=== PATIENT | female | born 1965 | race Caucasian/White ===

== ENCOUNTER 2017-07-08 12:32 | Emergency (ER) | payer BC, OTHER ==
[~2017-07-08] VITALS: Ht 167.6 cm; Wt 70.0 kg
[~2017-07-08 12:32] MED LIST: ACET325T11 PO; CLON.1 PO; FOLITAB6 OR; KCL20; SERT100 PO; TAB-TAB PO; VALI10TA OR
[2017-07-08 12:56] VITALS: BP 112/61; PULSE 104; RESP 18; TEMP 98.4; O2SAT 99
[2017-07-08 13:40] LABS: AUTOMATED NEUTROPHIL # 6.1 TH/MM3 (1.8-7.7); BASOPHIL # 0.1 TH/MM3 (0-0.2); BASOPHIL % 0.6 % (0.0-2.0); EOSINOPHIL # 0.1 TH/MM3 (0-0.4); EOSINOPHIL % 0.9 % (0.0-4.0); HEMO FLAGS DIFF FINAL; LYMPH % 19.3 % (9.0-44.0); LYMPHOCYTE # 1.7 TH/MM3 (1.0-4.8); MEAN CELL VOLUME 104.8 FL (80.0-100.0); MEAN CORPUSCULAR HEMOGLOBIN 36.1 PG (27.0-34.0); MEAN CORPUSCULAR HGB CONC 34.4 % (32.0-36.0); MONO % 9.1 % (0.0-8.0); NEUT % 70.1 % (16.0-70.0); PLATELET COUNT 214 TH/MM3 (150-450); RED CELL DISTRIBUTION WIDTH 13.7 % (11.6-17.2); WHITE BLOOD COUNT 8.6 TH/MM3 (4.0-11.0)
[2017-07-08 14:04] LABS: BLOOD, URINE SMALL (NEG); GLUCOSE,URINE NEG (NEG); KETONE, URINE NEG (NEG); NITRITE,URINE NEG (NEG); URINE COLOR LIGHT-YELLOW (YELLW/STRAW)
[2017-07-08 14:17] LABS: ALKALINE PHOSPHATASE 122 U/L (45-117); ALT (GPT) 48 U/L (10-53); ANION GAP 11 MEQ/L (5-15); AST (GOT) 33 U/L (15-37); BICARBONATE 22.2 MEQ/L (21.0-32.0); BLOOD UREA NITROGEN 16 MG/DL (7-18); CHLORIDE 107 MEQ/L (98-107); GLOMERULAR FILTRATION RATE 99 ML/MIN (>89); SODIUM (NA) 140 MEQ/L (136-145); TOTAL BILIRUBIN ADULT 0.2 MG/DL (0.2-1.0)
[2017-07-08 14:18] LABS: ALCOHOL 163 MG/DL (0-5)
[2017-07-08 14:32] LABS: BACTERIA, URINE OCC /hpf; COMMENT (UR) CULT NOT INDICATED; CULTURE IF INDICATED CULT NOT INDICATED; SQUAMOUS EPITHELIAL CELL URINE > 8 /hpf (0-5); WBC, URINE 0-2 /hpf (0-5)
--- NOTE | 2017-07-08 15:55 | PD ---
HPI Chief Complaint: Psychiatric Symptoms Time Seen by Provider: 14:45 Travel History International Travel<30 days: No Contact w/Intl Traveler<30days: No Traveled to known affect area: No History of Present Illness HPI 51-year-old female presents to the emergency room for evaluation of suicidal ideation and depression. Patient states she had a few glasses of wine today which is unusual for her. She called 911 hoping to speak to a patient advocate or counselor over the phone about her depression and suicidal ideation but instead security police officer showed up at her house and Oh acted her. She did tell them that she was suicidal for the past 3 months. Patient states she is depressed but has no plan to commit suicide. She denies homicidal ideation. Denies hallucinations or delusions. Reports occasional alcohol use. Denies illicit drug use. Denies any chronic medical conditions other than psychiatric. Denies any medical complaints. PFSH Past Medical History Bipolar Disorder: Yes Anxiety: Yes Depression: Yes Diminished Hearing: No Ulcer: Yes Menopausal: No : 2 Para: 2 Social History Alcohol Use: No (HX OF) Tobacco Use: No (HX OF 1/2 PPD (quit 04/02)) Substance Use: No Allergies-Medications (Allergen,Severity, Reaction): Coded Allergies: penicillin G (Unverified Allergy, Severe, 04/05/17) Reported Meds & Prescriptions Reported Meds & Active Scripts Active Reported Kcl 20 Meq Tab (Potassium Chloride) 20 Meq Tabcr 20 Meq .XX Folic Acid (Folic Cels-Sgvawuarla-Jjxlgxld) Tab 1 OR Multivitamin (Multivitamins) 1 Tab Tab 1 Tab PO DAILY Tylenol 325 Mg Tab (Acetaminophen) 325 Mg Tab 650 Mg PO TID Catapres (Clonidine HCl) 0.1 Mg Tab 0.1 Mg PO BID Valium (Diazepam) 10 Mg Tab 10 Mg OR TID Zoloft (Sertraline HCl) 100 Mg Tab 200 Mg PO DAILY Review of Systems Except as stated in HPI: all other systems reviewed are Neg Physical Exam Narrative GENERAL: Well-nourished, well-developed female in no acute distress. Afebrile. Ambulatory. SKIN: Focused skin assessment warm/dry. HEAD: Normocephalic. EYES: No scleral icterus. No injection or drainage. NECK: Supple, trachea midline. No JVD or lymphadenopathy. CARDIOVASCULAR: Regular rate and rhythm without murmurs, gallops, or rubs. RESPIRATORY: Breath sounds equal bilaterally. No accessory muscle use. PSYCHIATRIC: No delusional thought processes. No hallucinations. Anxious mood. Pressured speech. Data Data Last Documented VS Vital Signs Date Time Temp Pulse Resp B/P (MAP) Pulse Ox O2 Delivery O2 Flow Rate FiO2 07/08/17 12:56 98.4 104 18 112/61 (78) 99 Orders Orders Complete Blood Count With Diff (07/08/17 13:08) Comprehensive Metabolic Panel (07/08/17 13:08) Urinalysis - C+S If Indicated (07/08/17 13:08) Psych Screen (07/08/17 13:08) Drug Screen, Random Urine (07/08/17 13:08) Alcohol (Ethanol) (07/08/17 13:08) Labs Laboratory Tests Test 07/08/17 11:31 White Blood Count 8.6 TH/MM3 Red Blood Count 4.30 MIL/MM3 Hemoglobin 15.5 GM/DL Hematocrit 45.0 % Mean Corpuscular Volume 104.8 FL Mean Corpuscular Hemoglobin 36.1 PG Mean Corpuscular Hemoglobin Concent 34.4 % Red Cell Distribution Width 13.7 % Platelet Count 214 TH/MM3 Mean Platelet Volume 9.2 FL Neutrophils (%) (Auto) 70.1 % Lymphocytes (%) (Auto) 19.3 % Monocytes (%) (Auto) 9.1 % Eosinophils (%) (Auto) 0.9 % Basophils (%) (Auto) 0.6 % Neutrophils # (Auto) 6.1 TH/MM3 Lymphocytes # (Auto) 1.7 TH/MM3 Monocytes # (Auto) 0.8 TH/MM3 Eosinophils # (Auto) 0.1 TH/MM3 Basophils # (Auto) 0.1 TH/MM3 CBC Comment DIFF FINAL Differential Comment Urine Color LIGHT-YELLOW Urine Turbidity CLEAR Urine pH 5.0 Urine Specific [place] 1.006 Urine Protein NEG mg/dL Urine Glucose (UA) NEG mg/dL Urine Ketones NEG mg/dL Urine Occult Blood SMALL Urine Nitrite NEG Urine Bilirubin NEG Urine Urobilinogen LESS THAN 2.0 MG/DL Urine Leukocyte Esterase SMALL Urine RBC 1-3 /hpf Urine WBC 0-2 /hpf Urine Squamous Epithelial Cells > 8 /hpf Urine Bacteria OCC /hpf Microscopic Urinalysis Comment CULT NOT INDICATED Blood Urea Nitrogen 16 MG/DL Creatinine 0.63 MG/DL Random Glucose 107 MG/DL Total Protein 7.9 GM/DL Albumin 3.9 GM/DL Calcium Level 9.2 MG/DL Alkaline Phosphatase 122 U/L Aspartate Amino Transf (AST/SGOT) 33 U/L Alanine Aminotransferase (ALT/SGPT) 48 U/L Total Bilirubin 0.2 MG/DL Sodium Level 140 MEQ/L Potassium Level 4.0 MEQ/L Chloride Level 107 MEQ/L Carbon Dioxide Level 22.2 MEQ/L Anion Gap 11 MEQ/L Estimat Glomerular Filtration Rate 99 ML/MIN Urine Opiates Screen NEG Urine Barbiturates Screen NEG Urine Amphetamines Screen NEG Urine Benzodiazepines Screen POS Urine Cocaine Screen NEG Urine Cannabinoids Screen POS Ethyl Alcohol Level 163 MG/DL MDM Medical Decision Making Medical Screen Exam Complete: Yes Emergency Medical Condition: Yes Medical Record Reviewed: Yes Differential Diagnosis Suicidal ideation, depression, anxiety, bipolar disorder Narrative Course 51-year-old female with history of depression, anxiety presents to the emergency room for evaluation of suicidal ideation. States she called 911 hoping to speak to someone over the phone and the diesel powerplant supervisor came to her house and Oh acted her. She denies suicidal ideation at this time. She denies any medical complaints at this time. Vital signs stable. She is mildly tachycardic but appears extremely anxious on exam. CMP was CBC unremarkable. UA shows no evidence of infection. Toxicology shows some alcohol most of them as well as benzodiazepines and cannabinoids. Physical exam is unremarkable. Patient is medically cleared for psychiatric evaluation at this time. Condition: Stable Olivia Burch Jul 08, 2017 15:55
[2017-07-08 17:39] VITALS: BP 110/60; PULSE 112; RESP 20; TEMP 92.1; O2SAT 98
--- NOTE | 2017-07-08 21:17 | PD ---
History of Present Illness Chief Complaint: Psychiatric Symptoms Time Seen by Provider: 20:30 Travel History International Travel<30 Days: No Contact w/Intl Traveler<30days: No Known affected area: No Legal Status Legal Status: Oh Act Oh Act Signed By: Efe Chinchilla Oh Act Comment: 07/08/2017 1149 AM DEP. Darrell ROPER #[id number] [id number] History of Present Illness: History of Present Illness HPI 51-year-old female with history of bipolar disorder who presents to the emergency room under a Oh act initiated by lawn service manager. The Oh act alleges that the patient call 911 and reported feeling depressed as well as suicidal. Patient reports that earlier in the morning she wanted to talk to someone so she called 911. She reported she had been feeling depressed at the time and that her was at work and could not answer the phone so she called the police. She denies that she said she wanted to hurt herself but that in fact she said" I don't want to live like this." The patient did not make an attempt at harming herself. She also admits that she had a glass of wine earlier during the morning. Blood alcohol level on arrival to the ED was 163. Positive toxicology for cannabinoids. Electronic medical record is reviewed. She has had several visits to the ED with the last visit being in 2009 for substance-induced mood disorder. At that visit she had been drinking alcohol as well. The patient was monitored and secure environment and she presented no behavioral dysregulation and no suicidality. She is calm, engaging and cooperative. Speech is clear, logical. There is no evidence of any psychosis, no delusions, no hallucinations and no paranoia. There is no pankaj. Mood is anxious. Denies suicidal or homicidal ideation intent or plan. Reports medication compliance. She has a follow-up appointment with this therapist on Tuesday and she plans on going to that appointment. She is requesting to be discharged home. Telephone call to her , Haja at [phone]. He has no concerns for her safety if she were to be discharged home. He informs me that she said she doesn't want to live like this anymore and not that she wanted to kill herself. He also reports that she had a medication adjustment approximately 3 weeks ago and this might be contributing to her call today. PFSH Past Medical History Bipolar Disorder: Yes Anxiety: Yes Depression: Yes Diminished Hearing: No Ulcer: Yes Menopausal: No : 2 Para: 2 Psychiatric History Psychiatric History Hx Psychiatric Treatment: Patient with hx of bipolar disorder. States she was an inpatient at age 31 in [place]. Her current psychiatrist is Dr. Yohana Guardado and her therapist is Brittany. Has an appointment on Tuesday. Denies any previous history of suicide attempt. History of Inpatient Treatment: Yes Guns or firearms in home: No Social History female. Lives with her . Unemployed. Hx Alcohol Use: Yes (HX OF) Hx Tobacco Use: No (HX OF 1/2 PPD (quit 04/02)) Hx Substance Use: No Substance Use Type: Alcohol (history of all call use on a consistent basis up until 2009.), Nicotine/Cigarettes Other Substances Used: wine occ., 1/2 ppd Hx of Substance Use Treatment: No Family Psychiatric History Negative Allergies-Medications (Allergen,Severity, Reaction): Coded Allergies: penicillin G (Unverified Allergy, Severe, 04/05/17) Reported Meds & Prescriptions Reported Meds & Active Scripts Active Reported Kcl 20 Meq Tab (Potassium Chloride) 20 Meq Tabcr 20 Meq .XX Folic Acid (Folic Brsa-Llvqzlkgot-Xyxfbxqr) Tab 1 OR Multivitamin (Multivitamins) 1 Tab Tab 1 Tab PO DAILY Tylenol 325 Mg Tab (Acetaminophen) 325 Mg Tab 650 Mg PO TID Catapres (Clonidine HCl) 0.1 Mg Tab 0.1 Mg PO BID Valium (Diazepam) 10 Mg Tab 10 Mg OR TID Zoloft (Sertraline HCl) 100 Mg Tab 200 Mg PO DAILY Review of Systems Except as stated in HPI: all other systems reviewed are Neg Mental Status Examination Appearance: Appropriate Consciousness: Alert Orientation: x4 Motor Activity: Normal gait Speech: Unremarkable Language: Adequate Fund of Knowledge: Adequate Attention and Concentration: Adequate Memory: Unremarkable Mood: Anxious Affect: Appropriate Thought Process & Associations: Intact Thought Content: Appropriate Hallucination Type: None Delusion Type: None Suicidal Ideation: No Suicidal Plan: No Suicidal Intention: No Homicidal Ideation: No Homicidal Plan: No Homicidal Intention: No Insight: Fair Judgment: Impulsive MDM Medical Decision Making Medical Record Reviewed: Yes Assessment/Plan History of Present Illness HPI 51-year-old female with history of bipolar disorder who presents to the emergency room under a Oh act initiated by lawn service manager. The Oh act alleges that the patient call 911 and reported feeling depressed as well as suicidal. Patient reports that earlier in the morning she wanted to talk to someone so she called 911. She reported she had been feeling depressed at the time and that her was at work and could not answer the phone so she called the police. She denies that she said she wanted to hurt herself but that in fact she said" I don't want to live like this." Patient is not psychotic and not manic. She is denying suicidal or homicidal ideation, intent or plan. She admits to having had some wine on the morning that she called the police. She is requesting to be discharge. At this time she does not meet Oh act criteria. She is cognitively intact. Contracts for safety. Her has agreed to pick her up at the emergency department. She will follow- up with her outpatient psychiatrist as well as set her outpatient therapist. Psychiatrically clear for discharge. Orders Orders Complete Blood Count With Diff (07/08/17 13:08) Comprehensive Metabolic Panel (07/08/17 13:08) Urinalysis - C+S If Indicated (07/08/17 13:08) Psych Screen (07/08/17 13:08) Drug Screen, Random Urine (07/08/17 13:08) Alcohol (Ethanol) (07/08/17 13:08) Diet Regular Basic (07/08/17 Dinner) Results Vital Signs Date Time Temp Pulse Resp B/P (MAP) Pulse Ox O2 Delivery O2 Flow Rate FiO2 07/08/17 17:39 92.1 112 20 110/60 (77) 98 Room Air 07/08/17 12:56 98.4 104 18 112/61 (78) 99 Laboratory Tests Test 07/08/17 11:31 White Blood Count 8.6 Red Blood Count 4.30 Hemoglobin 15.5 Hematocrit 45.0 Mean Corpuscular Volume 104.8 Mean Corpuscular Hemoglobin 36.1 Mean Corpuscular Hemoglobin Concent 34.4 Red Cell Distribution Width 13.7 Platelet Count 214 Mean Platelet Volume 9.2 Neutrophils (%) (Auto) 70.1 Lymphocytes (%) (Auto) 19.3 Monocytes (%) (Auto) 9.1 Eosinophils (%) (Auto) 0.9 Basophils (%) (Auto) 0.6 Neutrophils # (Auto) 6.1 Lymphocytes # (Auto) 1.7 Monocytes # (Auto) 0.8 Eosinophils # (Auto) 0.1 Basophils # (Auto) 0.1 CBC Comment DIFF FINAL Differential Comment Urine Color LIGHT-YELLOW Urine Turbidity CLEAR Urine pH 5.0 Urine Specific Peck 1.006 Urine Protein NEG Urine Glucose (UA) NEG Urine Ketones NEG Urine Occult Blood SMALL Urine Nitrite NEG Urine Bilirubin NEG Urine Urobilinogen LESS THAN 2.0 Urine Leukocyte Esterase SMALL Urine RBC 1-3 Urine WBC 0-2 Urine Squamous Epithelial Cells > 8 Urine Bacteria OCC Microscopic Urinalysis Comment CULT NOT INDICATED Blood Urea Nitrogen 16 Creatinine 0.63 Random Glucose 107 Total Protein 7.9 Albumin 3.9 Calcium Level 9.2 Alkaline Phosphatase 122 Aspartate Amino Transf (AST/SGOT) 33 Alanine Aminotransferase (ALT/SGPT) 48 Total Bilirubin 0.2 Sodium Level 140 Potassium Level 4.0 Chloride Level 107 Carbon Dioxide Level 22.2 Anion Gap 11 Estimat Glomerular Filtration Rate 99 Urine Opiates Screen NEG Urine Barbiturates Screen NEG Urine Amphetamines Screen NEG Urine Benzodiazepines Screen POS Urine Cocaine Screen NEG Urine Cannabinoids Screen POS Ethyl Alcohol Level 163 Diagnosis Primary Impression: Bipolar disorder Additional Impression: Alcohol-induced mood disorder Psychiatrically Cleared: Yes Med/ Other Pt Specific Info: No Change to Meds Disposition: 01 DISCHARGE HOME Condition: Stable Problem Qualifiers Primary Impression: Bipolar disorder Qualified Codes: F31.31 - Bipolar disorder, current episode depressed, mild MarquisShelby gonzalez [facility] Jul 08, 2017 21:17
--- NOTE | 2017-07-08 21:40 | PD ---
Physical Exam Date Seen by Provider: Jul 08, 2017 Time Seen by Provider: 21:38 Data Data Last Documented VS Vital Signs Date Time Temp Pulse Resp B/P (MAP) Pulse Ox O2 Delivery O2 Flow Rate FiO2 07/08/17 17:39 92.1 112 20 110/60 (77) 98 Room Air Orders Orders Complete Blood Count With Diff (07/08/17 13:08) Comprehensive Metabolic Panel (07/08/17 13:08) Urinalysis - C+S If Indicated (07/08/17 13:08) Psych Screen (07/08/17 13:08) Drug Screen, Random Urine (07/08/17 13:08) Alcohol (Ethanol) (07/08/17 13:08) Diet Regular Basic (07/08/17 Dinner) Ed Discharge Order (07/08/17 21:37) Labs Laboratory Tests Test 07/08/17 11:31 White Blood Count 8.6 TH/MM3 Red Blood Count 4.30 MIL/MM3 Hemoglobin 15.5 GM/DL Hematocrit 45.0 % Mean Corpuscular Volume 104.8 FL Mean Corpuscular Hemoglobin 36.1 PG Mean Corpuscular Hemoglobin Concent 34.4 % Red Cell Distribution Width 13.7 % Platelet Count 214 TH/MM3 Mean Platelet Volume 9.2 FL Neutrophils (%) (Auto) 70.1 % Lymphocytes (%) (Auto) 19.3 % Monocytes (%) (Auto) 9.1 % Eosinophils (%) (Auto) 0.9 % Basophils (%) (Auto) 0.6 % Neutrophils # (Auto) 6.1 TH/MM3 Lymphocytes # (Auto) 1.7 TH/MM3 Monocytes # (Auto) 0.8 TH/MM3 Eosinophils # (Auto) 0.1 TH/MM3 Basophils # (Auto) 0.1 TH/MM3 CBC Comment DIFF FINAL Differential Comment Urine Color LIGHT-YELLOW Urine Turbidity CLEAR Urine pH 5.0 Urine Specific Man 1.006 Urine Protein NEG mg/dL Urine Glucose (UA) NEG mg/dL Urine Ketones NEG mg/dL Urine Occult Blood SMALL Urine Nitrite NEG Urine Bilirubin NEG Urine Urobilinogen LESS THAN 2.0 MG/DL Urine Leukocyte Esterase SMALL Urine RBC 1-3 /hpf Urine WBC 0-2 /hpf Urine Squamous Epithelial Cells > 8 /hpf Urine Bacteria OCC /hpf Microscopic Urinalysis Comment CULT NOT INDICATED Blood Urea Nitrogen 16 MG/DL Creatinine 0.63 MG/DL Random Glucose 107 MG/DL Total Protein 7.9 GM/DL Albumin 3.9 GM/DL Calcium Level 9.2 MG/DL Alkaline Phosphatase 122 U/L Aspartate Amino Transf (AST/SGOT) 33 U/L Alanine Aminotransferase (ALT/SGPT) 48 U/L Total Bilirubin 0.2 MG/DL Sodium Level 140 MEQ/L Potassium Level 4.0 MEQ/L Chloride Level 107 MEQ/L Carbon Dioxide Level 22.2 MEQ/L Anion Gap 11 MEQ/L Estimat Glomerular Filtration Rate 99 ML/MIN Urine Opiates Screen NEG Urine Barbiturates Screen NEG Urine Amphetamines Screen NEG Urine Benzodiazepines Screen POS Urine Cocaine Screen NEG Urine Cannabinoids Screen POS Ethyl Alcohol Level 163 MG/DL [facility] Medical Record Reviewed: Yes Supervised Visit with BRIANNA: No Interpretation(s) Laboratory Tests Test 07/08/17 11:31 White Blood Count 8.6 TH/MM3 Red Blood Count 4.30 MIL/MM3 Hemoglobin 15.5 GM/DL Hematocrit 45.0 % Mean Corpuscular Volume 104.8 FL Mean Corpuscular Hemoglobin 36.1 PG Mean Corpuscular Hemoglobin Concent 34.4 % Red Cell Distribution Width 13.7 % Platelet Count 214 TH/MM3 Mean Platelet Volume 9.2 FL Neutrophils (%) (Auto) 70.1 % Lymphocytes (%) (Auto) 19.3 % Monocytes (%) (Auto) 9.1 % Eosinophils (%) (Auto) 0.9 % Basophils (%) (Auto) 0.6 % Neutrophils # (Auto) 6.1 TH/MM3 Lymphocytes # (Auto) 1.7 TH/MM3 Monocytes # (Auto) 0.8 TH/MM3 Eosinophils # (Auto) 0.1 TH/MM3 Basophils # (Auto) 0.1 TH/MM3 CBC Comment DIFF FINAL Differential Comment Urine Color LIGHT-YELLOW Urine Turbidity CLEAR Urine pH 5.0 Urine Specific Man 1.006 Urine Protein NEG mg/dL Urine Glucose (UA) NEG mg/dL Urine Ketones NEG mg/dL Urine Occult Blood SMALL Urine Nitrite NEG Urine Bilirubin NEG Urine Urobilinogen LESS THAN 2.0 MG/DL Urine Leukocyte Esterase SMALL Urine RBC 1-3 /hpf Urine WBC 0-2 /hpf Urine Squamous Epithelial Cells > 8 /hpf Urine Bacteria OCC /hpf Microscopic Urinalysis Comment CULT NOT INDICATED Blood Urea Nitrogen 16 MG/DL Creatinine 0.63 MG/DL Random Glucose 107 MG/DL Total Protein 7.9 GM/DL Albumin 3.9 GM/DL Calcium Level 9.2 MG/DL Alkaline Phosphatase 122 U/L Aspartate Amino Transf (AST/SGOT) 33 U/L Alanine Aminotransferase (ALT/SGPT) 48 U/L Total Bilirubin 0.2 MG/DL Sodium Level 140 MEQ/L Potassium Level 4.0 MEQ/L Chloride Level 107 MEQ/L Carbon Dioxide Level 22.2 MEQ/L Anion Gap 11 MEQ/L Estimat Glomerular Filtration Rate 99 ML/MIN Urine Opiates Screen NEG Urine Barbiturates Screen NEG Urine Amphetamines Screen NEG Urine Benzodiazepines Screen POS Urine Cocaine Screen NEG Urine Cannabinoids Screen POS Ethyl Alcohol Level 163 MG/DL Differential Diagnosis . Narrative Course The patient was evaluated by the psychiatric nurse practitioner under her Oh act. The Oh act has been lifted. They are not a threat to himself or others. The patient is given treatment information and discharged in stable condition. Diagnosis Primary Impression: Medical clearance for psychiatric admission Patient Instructions: General Instructions Additional Instruction: Rest. Follow-up with the recommendations of the psych screener Disposition: 01 DISCHARGE HOME Condition: Stable Jose Schulz Jul 08, 2017 21:40
== END 2017-07-08 21:57 | disposition home or self-care (01) ==
LOC: NEPJ 12:32
DX: F31.31 Bipolar disorder, current episode depressed, mild (principal); F10.94 Alcohol use, unspecified with alcohol-induced mood disorder; Y90.6 Blood alcohol level of 120-199 mg/100 ml; Z79.899 Other long term (current) drug therapy
CPT/HCPCS: 80053; 80307; 81001; 85025; 99283

== ENCOUNTER 2017-09-30 10:39 | Emergency (ER) | payer BC ==
[~2017-09-30] VITALS: Ht 167.6 cm; Wt 68.0 kg
[2017-09-30 10:41] VITALS: BP 157/96; PULSE 120; RESP 20; TEMP 97.3; O2SAT 98
[2017-09-30 12:12] LABS: AUTOMATED NEUTROPHIL # 5.6 TH/MM3 (1.8-7.7); BASOPHIL # 0.1 TH/MM3 (0-0.2); BASOPHIL % 0.6 % (0.0-2.0); EOSINOPHIL % 0.4 % (0.0-4.0); HEMATOCRIT 45.8 % (35.0-46.0); HEMOGLOBIN 15.7 GM/DL (11.6-15.3); LYMPHOCYTE # 2.9 TH/MM3 (1.0-4.8); MEAN CELL VOLUME 102.5 FL (80.0-100.0); MEAN CORPUSCULAR HEMOGLOBIN 35.2 PG (27.0-34.0); MEAN CORPUSCULAR HGB CONC 34.3 % (32.0-36.0); MONO % 5.8 % (0.0-8.0); MONOCYTE # 0.5 TH/MM3 (0-0.9); NEUT % 61.2 % (16.0-70.0); PLATELET COUNT 276 TH/MM3 (150-450); RED BLOOD COUNT 4.47 MIL/MM3 (4.00-5.30); RED CELL DISTRIBUTION WIDTH 12.4 % (11.6-17.2); WHITE BLOOD COUNT 9.2 TH/MM3 (4.0-11.0)
[2017-09-30 12:26] LABS: ALBUMIN 3.8 GM/DL (3.4-5.0); AST (GOT) 102 U/L (15-37); BLOOD UREA NITROGEN 11 MG/DL (7-18); CALCIUM 9.4 MG/DL (8.5-10.1); CHLORIDE 106 MEQ/L (98-107); CREATININE 0.61 MG/DL (0.50-1.00); GLOMERULAR FILTRATION RATE 103 ML/MIN (>89); GLUCOSE,RANDOM 107 MG/DL (74-106); SODIUM (NA) 140 MEQ/L (136-145)
[2017-09-30 12:27] LABS: ALT (GPT) 148 U/L (10-53)
[2017-09-30 12:35] LABS: ALKALINE PHOSPHATASE 121 U/L (45-117); TOTAL BILIRUBIN ADULT 0.2 MG/DL (0.2-1.0); TOTAL PROTEIN 7.9 GM/DL (6.4-8.2)
--- NOTE | 2017-09-30 13:39 | PD ---
HPI Chief Complaint: Psychiatric Symptoms Time Seen by Provider: 11:12 Travel History International Travel<30 days: No Contact w/Intl Traveler<30days: No Traveled to known affect area: No History of Present Illness HPI This is a 51-year-old female who per her family has a history of delusional disorder with depression who presents to the emergency department with increasing delusions and hallucinations. She says that she hears the devil talking to her and she has been increasingly depressed and delusional. Her reports that she has been locking herself in the house and has not been willing to get out. She was discharged from a psychiatrist recently because she was not going to her appointments but it was because she did not want to leave the house. She has been off of her psychiatric medication for several weeks except for her Pristiq. She does acknowledge drinking alcohol today. Her says he gave her wine so she would be calm enough to leave the house and come here. PFSH Past Medical History Bipolar Disorder: Yes Anxiety: Yes Depression: Yes Diminished Hearing: No Ulcer: Yes ?: Unknown Menopausal: No : 2 Para: 2 Social History Alcohol Use: Yes (HX OF) Tobacco Use: Yes Substance Use: No Allergies-Medications (Allergen,Severity, Reaction): Coded Allergies: penicillin G (Unverified Allergy, Severe, 04/05/17) Reported Meds & Prescriptions Reported Meds & Active Scripts Active Reported Kcl 20 Meq Tab (Potassium Chloride) 20 Meq Tabcr 20 Meq .XX Folic Acid (Folic Alsg-Gkmrpavgmn-Kvzwcybp) Tab 1 OR Multivitamin (Multivitamins) 1 Tab Tab 1 Tab PO DAILY Tylenol 325 Mg Tab (Acetaminophen) 325 Mg Tab 650 Mg PO TID Catapres (Clonidine HCl) 0.1 Mg Tab 0.1 Mg PO BID Valium (Diazepam) 10 Mg Tab 10 Mg OR TID Zoloft (Sertraline HCl) 100 Mg Tab 200 Mg PO DAILY Review of Systems Except as stated in HPI: all other systems reviewed are Neg Physical Exam Narrative GENERAL:Well appearing, no acute distress SKIN: Focused skin assessment warm and dry. HEAD: Atraumatic. Normocephalic. EYES: Pupils equal and round. No injection or drainage. ENT: Moist mucous membranes NECK: Trachea midline. CARDIOVASCULAR: Regular rate and rhythm. No murmur appreciated. RESPIRATORY: Clear to auscultation. Breath sounds equal bilaterally. GASTROINTESTINAL: Abdomen soft, non-tender, nondistended. MUSCULOSKELETAL: No obvious deformities. NEUROLOGICAL: Awake and alert. No obvious cranial nerve deficits. Moving all extremities. PSYCHIATRIC: tearful, reporting auditory hallucinations Data Data Last Documented VS Vital Signs Date Time Temp Pulse Resp B/P (MAP) Pulse Ox O2 Delivery O2 Flow Rate FiO2 09/30/17 10:41 97.3 120 20 157/96 (116) 98 Orders Orders Complete Blood Count With Diff (09/30/17 11:14) Comprehensive Metabolic Panel (09/30/17 11:14) Thyroid Stimulating Hormone (09/30/17 11:14) Psych Screen (09/30/17 11:14) Drug Screen, Random Urine (09/30/17 11:14) Alcohol (Ethanol) (09/30/17 11:14) Labs Laboratory Tests Test 09/30/17 11:55 09/30/17 12:00 White Blood Count 9.2 TH/MM3 Red Blood Count 4.47 MIL/MM3 Hemoglobin 15.7 GM/DL Hematocrit 45.8 % Mean Corpuscular Volume 102.5 FL Mean Corpuscular Hemoglobin 35.2 PG Mean Corpuscular Hemoglobin Concent 34.3 % Red Cell Distribution Width 12.4 % Platelet Count 276 TH/MM3 Mean Platelet Volume 9.0 FL Neutrophils (%) (Auto) 61.2 % Lymphocytes (%) (Auto) 32.0 % Monocytes (%) (Auto) 5.8 % Eosinophils (%) (Auto) 0.4 % Basophils (%) (Auto) 0.6 % Neutrophils # (Auto) 5.6 TH/MM3 Lymphocytes # (Auto) 2.9 TH/MM3 Monocytes # (Auto) 0.5 TH/MM3 Eosinophils # (Auto) 0.0 TH/MM3 Basophils # (Auto) 0.1 TH/MM3 CBC Comment DIFF FINAL Differential Comment Blood Urea Nitrogen 11 MG/DL Creatinine 0.61 MG/DL Random Glucose 107 MG/DL Total Protein 7.9 GM/DL Albumin 3.8 GM/DL Calcium Level 9.4 MG/DL Alkaline Phosphatase 121 U/L Aspartate Amino Transf (AST/SGOT) 102 U/L Alanine Aminotransferase (ALT/SGPT) 148 U/L Total Bilirubin 0.2 MG/DL Sodium Level 140 MEQ/L Potassium Level 4.6 MEQ/L Chloride Level 106 MEQ/L Carbon Dioxide Level 20.0 MEQ/L Anion Gap 14 MEQ/L Estimat Glomerular Filtration Rate 103 ML/MIN Thyroid Stimulating Hormone 3rd Gen 0.458 uIU/ML Ethyl Alcohol Level 169 MG/DL Urine Opiates Screen NEG Urine Barbiturates Screen NEG Urine Amphetamines Screen NEG Urine Benzodiazepines Screen NEG Urine Cocaine Screen NEG Urine Cannabinoids Screen NEG MDM Medical Decision Making Medical Screen Exam Complete: Yes Emergency Medical Condition: Yes Interpretation(s) afebrile, tachycardic, hypertensive No leukocytosis Electrolytes are reassuring Transaminitis TSH is normal Alcohols 169 Urine drug screen is negative Differential Diagnosis Delusional disorder, acute depression, psychosis, alcohol intoxication, alcohol induced mood disorder Narrative Course Is a 51-year-old female who presents to the emergency department voluntarily for psychiatric evaluation. Reportedly per her and her family she has become increasingly delusional, depressed and is hearing auditory hallucinations. On exam she is tearful. Labs demonstrate alcohol intoxication and some transaminitis which may be due to chronic alcoholism. When I talked to the family they downplayed her alcohol use. There is a she drank wine this morning so they could get her out of the house. It is unclear to me how much of this is underlying true psychiatric disease and how much is alcohol induced. I think patient requires psychiatric evaluation. Araceli Schreiber MD Sep 30, 2017 13:39
[2017-09-30] MEDS ORDERED: LORazepam 1 MG TAB PO ONE (14:15)
== END 2017-09-30 16:00 | disposition left against medical advice (07) ==
LOC: NEPD 10:39
DX: F19.94 Other psychoactive substance use, unspecified with psychoactive substance-induced mood disorder (principal); F10.129 Alcohol abuse with intoxication, unspecified; Y90.6 Blood alcohol level of 120-199 mg/100 ml; R74.0 Nonspecific elevation of levels of transaminase and lactic acid dehydrogenase [LDH]; F31.9 Bipolar disorder, unspecified; F41.9 Anxiety disorder, unspecified; Z53.20 Procedure and treatment not carried out because of patient's decision for unspecified reasons; Z72.0 Tobacco use
CPT/HCPCS: 80053; 80307; 84443; 85025; 99283